=== PATIENT | male | born 1985 | race Caucasian/White ===

== ENCOUNTER 2018-06-27 21:19 | Emergency (ER) | payer MEDICAID ==
[~2018-06-27] VITALS: Wt 85.5 kg
[~2018-06-27 21:19] MED LIST: CEPH500C PO; DOCU-144 PO; HYDR-3601 PO
[2018-06-28] MEDS ORDERED: HC30CR25 TOP (02:07)
--- NOTE | 2018-06-28 02:12 | ERD ---
ER Documentation Chief Complaint Chief Complaint rash/wound left 3rd, 4th fingers x 4 weeks, states spreading to both hands HPI 33-year-old male presents with complaint of rash to his third and fourth fingers for the last 4 weeks. States that it itches. Denies any pain. Denies treatments. Denies past medical history. Denies allergies. Denies medications. Denies surgeries. Denies alcohol, tobacco, drug use. Up to date on vaccines. ROS All systems reviewed and are negative except as per history of present illness. Medications Home Meds Active Scripts Hydrocortisone* Topical (Hydrocortisone* Topical) 2.5%-28.3 Gm Cream..g., 1 APPLIC TOP BID for eczema, #1 TUB Prov:SMOOTH GILBERT 06/28/18 Cephalexin* (Cephalexin*) 500 Mg Capsule, 500 MG PO Q8, #21 CAP Prov:KEYSHA ZHU MD 02/09/16 Docusate Sodium* (Colace*) 100 Mg Capsule, 100 MG PO Q12H PRN for CONSTIPATION for 1 Day, CAP Prov:KEYSHA ZHU MD 02/09/16 Hydrocodone Bit-Acetaminophen (Hydrocodone Bit-APAP) 5-325MG Tablet, 1 TAB PO Q4H PRN for Pain 1-5 for 1 Day, TAB Prov:KEYSHA ZHU MD 02/09/16 Allergies Allergies: Coded Allergies: No Known Allergy (Unverified , 06/27/18) PMhx/Soc History of Surgery: No Anesthesia Reaction: No Hx Neurological Disorder: No Hx Respiratory Disorders: No Hx Cardiac Disorders: No Hx Psychiatric Problems: No Hx Miscellaneous Medical Probl: No Hx Alcohol Use: Yes Hx Substance Use: No Hx Tobacco Use: No Smoking Status: Never smoker FmHx Family History: No diabetes, No coronary disease, No other Physical Exam Vitals Vital Signs Date Temp Pulse Resp B/P (MAP) Pulse Ox O2 O2 Flow FiO2 Time Delivery Rate 06/28/18 97.5 71 18 135/65 99 Room Air 02:25 (88) 06/27/18 97.5 73 18 140/65 99 21:32 (90) Physical Exam Const: No acute distress Head: Atraumatic Eyes: Normal Conjunctiva ENT: Normal External Ears, Nose and Mouth. Neck: Full range of motion. No meningismus. Resp: Clear to auscultation bilaterally Cardio: Regular rate and rhythm, no murmurs Skin: Scaly erythematous plaques noted to the dorsal aspect of the left third and fourth fingers. No edema noted. Nontender to palpation. Distal sensation and range of motion intact. Neur: Awake and alert Psych: Normal Mood and Affect Procedures/MDM 33-year-old male presents with complaint of rash to his third and fourth fingers for the last 4 weeks. States that it itches. Denies any pain. Denies treatments. Denies past medical history. Denies allergies. Denies medications. Denies surgeries. Denies alcohol, tobacco, drug use. Up to date on vaccines. Patient's presentation is consistent with eczema for which hydrocortisone cream was prescribed. I have low suspicion for infection, cellulitis, or any other more emergent condition. Patient discharged with strict ER precautions. Patient advised to follow up with PMD. All questions answered at discharge. Departure Diagnosis: Primary Impression: Eczema Eczema type: unspecified Qualified Codes: L30.9 - Dermatitis, unspecified Condition: Stable Patient Instructions: Atopic Dermatitis (Eczema) Referrals: [facility] YOU HAVE RECEIVED A MEDICAL SCREENING EXAM AND THE RESULTS INDICATE THAT YOU DO NOT HAVE A CONDITION THAT REQUIRES URGENT TREATMENT IN THE EMERGENCY DEPARTMENT. FURTHER EVALUATION AND TREATMENT OF YOUR CONDITION CAN WAIT UNTIL YOU ARE SEEN IN YOUR DOCTORS OFFICE WITHIN THE NEXT 1-2 DAYS. IT IS YOUR RESPONSIBILITY TO MAKE AN APPOINTMENT FOR FOLOW-UP CARE. IF YOU HAVE A PRIMARY DOCTOR --you should call your primary doctor and schedule an appointment IF YOU DO NOT HAVE A PRIMARY DOCTOR YOU CAN CALL OUR PHYSICIAN REFERRAL HOTLINE AT IF YOU CAN NOT AFFORD TO SEE A PHYSICIAN YOU CAN CHOSE FROM THE FOLLOWING [facility] [id number] [facility]. [facility] [address] [facility] [address] [facility] [facility] [address] [facility]. [facility] [address] [facility]. [facility]. [address] Additional Instructions: FOLLOW UP WITH YOUR PRIMARY CARE PHYSICIAN TOMORROW.Return to this facility if you are not improving as expected. SMOOTH GILBERT Jun 28, 2018 02:12
[2018-06-28 02:25] VITALS: BP 135/65; PULSE 71; RESP 18
== END 2018-06-28 02:25 | disposition home or self-care (01) ==
LOC: FTE 21:19
DX: L30.9 Dermatitis, unspecified (principal)
CPT/HCPCS: 99282